=== PATIENT | female | born 1990 | race Caucasian/White ===

== ENCOUNTER → 2025-09-09 | Outpatient (CLI) | payer OTHER | END | disposition home or self-care (01) | LOC: MRI 10:15 | PROVIDERS: ATTEND Family Medicine Adult Medicine | DX: M51.370 Other intervertebral disc degeneration, lumbosacral region with discogenic back pain only (principal); M51.24 Other intervertebral disc displacement, thoracic region; M53.87 Other specified dorsopathies, lumbosacral region | CPT/HCPCS: 72148 ==